=== PATIENT | female | born 1995 ===

== ENCOUNTER 2017-03-14 23:17 | Emergency (ER) | payer MEDICAID ==
[2017-03-15] VITALS: BMI 21.9
[2017-03-15 00:06] VITALS: BP 104/57; PULSE 94; RESP 18; TEMP 98.6; O2SAT 88
[2017-03-15] MEDS ORDERED: DiphenhydrAMINE 50 mg/ml Inj IM STA (00:53)
== END 2017-03-15 01:40 | disposition home or self-care (01) ==
LOC: ED 23:17
DX: T78.40XA Allergy, unspecified, initial encounter (principal); X58.XXXA Exposure to other specified factors, initial encounter